=== PATIENT | male | born 1985 | race Caucasian/White ===

== ENCOUNTER 2023-08-05 08:17 | Day surgery (SDC) | payer BC ==
[~2023-08-05 08:17] MED LIST: Lactated Ringers 1,000 ML IV SCH
[2023-08-05] MEDS ORDERED: propofoL 50 ML ONE (10:11)
[2023-08-05] MEDS ORDERED: Propofol 200 MG/20 ML SDV ONE (10:25)
[2023-08-05] MEDS ORDERED: Lactated Ringers 1,000 ML IV SCH (10:45)
== END 2023-08-05 11:50 | disposition home or self-care (01) ==
LOC: MW.SDS 08:17
PROVIDERS: ATTEND Surgery
DX: Z12.11 Encounter for screening for malignant neoplasm of colon (principal); D12.3 Benign neoplasm of transverse colon; F17.200 Nicotine dependence, unspecified, uncomplicated; E66.9 Obesity, unspecified; Z80.0 Family history of malignant neoplasm of digestive organs; Z68.34 Body mass index [BMI] 34.0-34.9, adult
CPT/HCPCS: 45380; J2704; J7120; 00812